=== PATIENT | female | born 1975 | race Caucasian/White ===

== ENCOUNTER 2017-03-08 18:09 | Inpatient (IN) ==
[2017-03-08] MEDS ORDERED: AUGMENTIN PO ONE (21:02)
[2017-03-08] MEDS ORDERED: DECADRON IM ONE (21:02)
[2017-03-08] MEDS ORDERED: ZITHROMAX PO ONE (21:02)
[2017-03-08] MEDS ORDERED: DUONEB (A & A) INH ONE (21:03)
[2017-03-08 21:32] LABS: MANUAL DIFF NEEDED? NO
[2017-03-08 21:36] LABS: BASO% 0.4 % (0.0-0.8); EOS# 0.15 X1000 (0.0-0.7); HEMATOCRIT 48.5 % (37.0-47.0); HEMOGLOBIN 16.3 g/dL (12.0-16.0); IMM GRAN# 0.03 X1000 (0.0-0.04); IMM GRAN% 0.4 % (0.0-0.5); LYMPH# 2.62 X1000 (1.2-3.4); LYMPH% 34.3 % (20.5-51.1); MCH 29.3 PG (27-31); MCHC 33.6 g/dL (33-37); MCV 87.2 FL (81-99); MONO# 0.92 X1000 (0.11-0.59); MONO% 12.1 % (1.7-9.3); MPV 11.5 FL (7.4-10.4); NEUT% 50.8 % (42.2-75.2); PLT 193 X1000 (130-400); RBC 5.56 XMIL (4.2-5.4)
--- NOTE | 2017-03-08 21:50 | EKG Report ---
Test Performed on : 03/08/2017 9:05:48 PM Test Reason : CHEST PAIN Blood Pressure : / mmHG Vent. Rate : 083 BPM Atrial Rate : 083 BPM P-R Int : 136 ms QRS Dur : 090 ms QT Int : 374 ms P-R-T Axes : 016 085 031 degrees QTc Int : 439 ms Normal sinus rhythm. Normal ECG When compared with ECG of 04-FEB-2012 14:14, No significant change was found Unconfirmed Result
[2017-03-08 22:03] LABS: AGAP 17; ALBUMIN 4.1 g/dL (3.5-5.0); ALKALINE PHOSPHATASE 75 U/L (32-104); BUN 22 mg/dL (8-22); CALCIUM 9.8 mg/dL (8.8-10.2); CHLORIDE 94 mmol/L (98-107); CK PROFILE 41 U/L (24-173); COSMO 273; GOT 9 U/L (10-30); GPT 11 U/L (10-36); POTASSIUM 3.8 mmol/L (3.5-5.1); SODIUM 127 mmol/L (136-145); TCO2 16 mmol/L (25-35); TOTAL PROTEIN 7.5 g/dL (6.3-8.3)
[2017-03-08 22:05] LABS: INR 0.91 (0.86-1.15); PROTIME 12.6 Seconds (12.1-15.5)
[2017-03-09 00:22] LABS: URINE CULTURE PL NEEDED? NO
[2017-03-09 00:29] LABS: BE -8.6 mmoll (-3.0-3.0); BLOOD TYPE ARTERIAL; DRAW SITE R RADIAL; O2(CT) 22.6 mL/dL (15.0-23.0); PCO2(98.6) 31 mmHg (35-45); PO2(98.6) 92 mmHg (60-100); SAMPLE BLOOD; SAO2 97.4 % (95.0-100.0); THB 17.1 g/dL (11.5-17.4); pH(98.6) 7.32 (7.35-7.45)
[2017-03-09 00:34] LABS: ALLEN TEST YES; MODALITY ROOM AIR
[2017-03-09] MEDS ORDERED: HUMULIN R IV ONE ×3 (01:18→02:29)
[2017-03-09] MEDS ORDERED: NS 2,000 ML IV ONE (01:18)
[2017-03-09] MEDS ORDERED: ATIVAN IV ONE (01:19)
[2017-03-09] MEDS ORDERED: COZAAR PO ONE (01:37)
[2017-03-09] MEDS ORDERED: NS 100 ML ONE (01:50)
[2017-03-09 01:53] LABS: BILIRUBIN URINE NEGATIVE (NEGATIVE); BLOOD URINE TRACE (NEGATIVE); CLARITY CLEAR (CLEAR); COLOR YELLOW; LEUKOCYTES URINE NEGATIVE (NEGATIVE); NITRITE URINE NEGATIVE (NEGATIVE); PH URINE 6.5; PROTEIN URINE NEGATIVE (NEGATIVE); UROBILINOGEN URINE NORMAL
[2017-03-09] MEDS ORDERED: NS 1,000 ML ONE (01:53)
[2017-03-09 01:54] LABS: URINE SOURCE CLEAN CATCH
[2017-03-09 01:55] LABS: URINE EPITHELIAL CELLS <10 /HPF (<10); URINE RBC <10 /HPF (<10); URINE WBC <10 /HPF (<10)
[2017-03-09] MEDS ORDERED: SODIUM PHOSPHATE 30 MMOL in D5W 250 ML IV PRN (02:29)
[2017-03-09] MEDS ORDERED: D50W SYRINGE IV PRN (02:29)
[2017-03-09] MEDS ORDERED: HUMULIN R 100 UNIT in NS 99 ML IV SCH (02:29)
[2017-03-09] MEDS ORDERED: MAGNESIUM SULFATE 2 GM/S.W.I. 2 GM/50 ML IVPB IV PRN (02:29)
[2017-03-09] MEDS ORDERED: ZOFRAN IV PRN (02:29)
--- NOTE | 2017-03-09 02:51 | PROVIDER DOCUMENTATION ---
This chart was entered by Ashley Chambers Scribe, acting as scribe for Nitin Santiago PA. HPI-Respiratory General - General Source: patient - History of Present Illness-Resp Severity in ED: reports: mild Onset/Duration: reports: other (3 weeks) Cough Quality/Degree: reports: moderate Current Respiratory Medication Therapy: Initiated see nurses note Modifying Factors: improves with: nothing Associated Symptoms: reports: chest pain/soreness, cough Similar Symptoms Previously?: Yes Recently seen or treated by another doctor?: No <Nitin Santiago - Last Filed: 03/09/17 02:51> <Ela Marr - Last Filed: 03/09/17 16:48> <Osvaldo Donis - Last Filed: 03/11/17 02:44> - General Chief Complaint: Cough Stated Complaint: SOB/CHEST PAIN/COUGH Time Seen by Provider: 03/08/17 20:49 Allergies/Adverse Reactions: Patient Allergies Allergy/AdvReac Type Severity Reaction Status Date / Time ceftriaxone sodium * Allergy Severe RASH Verified 03/08/17 20:50 [From Rocephin] Home Medications: Home Medication List Medication Instructions Recorded Confirmed Last Taken Type NK [No Home Medications] 03/08/17 03/08/17 Unknown History - History of Present Illness-Resp Nature of Presenting Problem: 41 year old F presents to the ED with a cc of cough, chest pain, and feeling like she can not get enough air into her lungs. Pt staets that she has had the same and has been diagnosed with bronchitis. PT states that she has had the cough x3 weeks and chest pain began last night. Pt states her daughter was diagnosed with walking pneumonia and was told that it was contagious. (Ashley Chambers) 41 year old F presents to the ED with a cc of cough, chest pain, and feeling like she can not get enough air into her lungs. Pt staets that she has had the same and has been diagnosed with bronchitis. PT states that she has had the cough x3 weeks and chest pain began last night. Pt states her daughter was diagnosed with walking pneumonia and was told that it was contagious. (Nitin Santiago) Review of Systems - Adult - REVIEW OF SYSTEMS - ADULT Constitutional: denies: chills, fever Eyes: reports: no symptoms reported Ears, Nose, Mouth & Throat: reports: no symptoms reported Cardiovascular: reports: chest pain. denies: palpitations Respiratory: reports: cough. denies: shortness of breath Gastrointestinal: denies: nausea, vomiting Genitourinary: reports: no symptoms reported Musculoskeletal: reports: no symptoms reported Integumentary: reports: no symptoms reported Neurological: reports: no symptoms reported Psychiatric: reports: no symptoms reported Endocrine: reports: no symptoms reported Hematologic/Lymphatic: reports: no symptoms reported Allergic/Immunologic: reports: no symptoms reported All Other Systems: Reviewed and Negative <Nitin Santiago - Last Filed: 03/09/17 02:51> - REVIEW OF SYSTEMS - ADULT Constitutional: denies: chills, fever <Osvaldo Donis - Last Filed: 03/11/17 02:44> Past History - Adult - PAST MEDICAL HISTORY-ADULT Review of Records: reports: Nursing Assessment Review, Medications Reviewed Major Childhood Illnesses: reports: denies history Cardiovascular: reports: HTN Respiratory: reports: denies history Gastrointestinal: reports: GERD Obstetrical/Gynecological: reports: denies history Genitourinary: reports: denies history Musculoskeletal: reports: denies history Neurological: reports: denies history Endocrine/Immune: reports: Diabetes, thyroid disorder Other Conditions: reports: denies history - PRIOR SURGERIES/PROCEDURES Surgical/Procedure History: reports: hysterectomy - PRIOR HOSPITALIZATIONS Prior Hospitalizations: reports: for other non-related - IMMUNIZATION STATUS Childhood Immunizations: See Nurse Assessment Flu Vaccine: See Nurse Assessment - FAMILY HISTORY Family History: reviewed, not pertinent - SOCIAL HISTORY Smoking: cigarettes Provider spent 3-5 mins advising pt. on dangers of tobacco.: Discussed manners to quit use, and f/u contacts for add'l counseling. Substance Use: none/never Alcohol Use Frequency: never <Nitin Santiago - Last Filed: 03/09/17 02:51> - PAST MEDICAL HISTORY-ADULT Review of Records: reports: Old Records Reviewed <Ela Marr - Last Filed: 03/09/17 16:48> - PAST MEDICAL HISTORY-ADULT Review of Records: reports: Old Records Reviewed, Nursing Assessment Review, Medications Reviewed, Social history reviewed & non-contributory. <Osvaldo Donis - Last Filed: 03/11/17 02:44> Physical Exam-General - PHYSICAL EXAM-ADULT Initial Vital Signs Reviewed: Yes - CONSTITUTIONAL General Appearance: alert, no apparent distress, other (emotionally distraught) - RESPIRATORY Respiratory: chest non-tender, normal breath sounds, wheezing (mild bilaterally) - CARDIOVASCULAR Cardiovascular: normal peripheral pulses, regular rate, rhythm, no edema - SKIN Integumentary: normal color, normal turgor, warm/dry - PSYCHIATRIC Psych/Mental Status: normal thought content, normal thought process, oriented x 3, tearful <Nitin Santiago - Last Filed: 03/09/17 02:51> - CONSTITUTIONAL General Appearance: alert <Osvaldo Donis - Last Filed: 03/11/17 02:44> Progress - PLAN OF CARE/RESULTS Result Diagrams: 03/08/17 21:23 03/08/17 21:23 - REASSESSMENT Reassessment #1 Time Reassessed: 01:16 (Pt states she has not taken her diabetes medications in weeks. Based on review of labs, she appears to be in the early stages of DKA. I discussed this with the pt and she agreed to be treated as an in-patient. Pt is emotionally upset.) - EKG 1 Time of EKG reading by physician:: 21:05 EKG Read and Signed by:: Osvaldo Donis EKG Interpretation (*Must complete 3 of following elements*): Normal Rate: 83 Rhythm: NSR [place]: normal - CONSULTS/PCP/HOSPITALIST Notification #1 *Consult/PCP/Hospitalist*: Dr. Singleton (Hospitalist) Time Discussed: 01:36 Reason/Comments: Will admit. Start DKA Protocol <Nitin Santiago - Last Filed: 03/09/17 02:51> - PLAN OF CARE/RESULTS Result Diagrams: 03/08/17 21:23 03/09/17 10:30 <Ela Marr - Last Filed: 03/09/17 16:48> - PLAN OF CARE/RESULTS Result Diagrams: 03/08/17 21:23 03/10/17 07:10 - REASSESSMENT Reassessment #1 Time Reassessed: 01:16 - EKG 1 Time of EKG reading by physician:: 21:05 EKG Read and Signed by:: Osvaldo Donis EKG Interpretation (*Must complete 3 of following elements*): Normal Rate: 83 Rhythm: nsr [place]: normal <Osvaldo Donis - Last Filed: 03/11/17 02:44> - PLAN OF CARE/RESULTS Progress/Plan/Lab Results: Orders Category Date Time Status Admit - [facility] Routine AdmDCTranf 03/09/17 01:38 Ordered Activity - Up Ad Gisele ORDERED Care 03/09/17 01:38 Active Call Admitting on Arrival AT ADMISSION Care 03/09/17 01:38 Completed CHEST-2 VIEWS [RAD] Stat Exams 03/08/17 18:22 Completed ABG [RESP] Routine Lab 03/09/17 00:10 Completed ACETONE SERUM [CHEM] Stat Lab 03/09/17 00:03 Completed BASIC METABOLIC PANEL [CHEM] Stat Lab 03/09/17 01:32 Completed BASIC METABOLIC PANEL [CHEM] Timed Lab 03/09/17 06:00 Completed CBC WITH ELECTRONIC DIFF [HEME] Stat Lab 03/08/17 21:23 Completed CK PROFILE [SP CHEM] Stat Lab 03/08/17 21:23 Completed COMPREHENSIVE METABOLIC PANEL [CHEM] Stat Lab 03/08/17 21:23 Com[address] D-D[address]ER [address] [COAG] Stat Lab 03/08/17 21:23 Completed MAGNESIUM [CHEM] Stat Lab 03/08/17 21:23 Completed MAGNESIUM [CHEM] Stat Lab 03/09/17 01:32 Completed MAGNESIUM [CHEM] Timed Lab 03/09/17 06:00 Completed PHOSPHORUS [CHEM] Stat Lab 03/09/17 01:32 Completed PHOSPHORUS [CHEM] Timed Lab 03/09/17 06:00 Completed PRO B-NATRIURETIC PEPTIDE Stat Lab 03/08/17 21:[address] Com[address]IME WITH INR PL [COAG] Stat Lab 03/08/17 21:[address] [COAG] Stat Lab 03/08/17 21:23 Completed TROPONIN T Stat Lab 03/08/17 21:[address] W/POSS RFLX CULT [URINALYSIS] Stat Lab 03/09/17 00:07 Completed 0.9% Sodium Chloride Inj [Ns] 1,000 ml Med 03/09/17 01:53 Discontinued .ROUTE As Directed 0.9% Sodium Chloride Inj [Ns] 100 ml Med 03/09/17 01:50 Discontinued .ROUTE As Directed 0.9% Sodium Chloride Inj [Ns] 2,000 ml Med 03/09/17 01:18 Discontinued IV 999 mls/hr Albuterol 2.5MG/Ipratrop 0.5MG [Duoneb (A & A)] Med 03/08/17 21:03 Discontinued 6 ml INH NOW ONE Amoxicillin/Pot Clavulanate [Augmentin] Med 03/08/17 21:02 Discontinued 875 mg PO NOW ONE Azithromycin [Zithromax] Med 03/08/17 21:02 Discontinued 500 mg PO NOW ONE Dexamethasone [Decadron] Med 03/08/17 21:02 Discontinued 10 mg IM NOW ONE Insulin Human Regular [Humulin R] Med 03/09/17 01:18 Discontinued 10 unit IV NOW ONE Insulin Human Regular [Humulin R] Med 03/09/17 01:19 Discontinued See Protocol IV NOW ONE Lorazepam [Ativan] Med 03/09/17 01:19 Discontinued 1 mg IV NOW ONE Losartan [Cozaar] Med 03/09/17 01:37 Discontinued 100 mg PO NOW ONE Aerosol Treatments Routine Oth 03/08/17 21:03 Completed Aerosol Treatments Stat Oth 03/08/17 21:03 Completed Oxygen Device Routine Oth 03/09/17 01:39 Completed Telemetry [OM.EQ] Routine Oth 03/09/17 01:38 Active EKG [EKG] Stat Ther 03/08/17 21:02 Draft Transfer/Admit Order [TRANSFER] Routine Transfer 03/09/17 01:40 Completed Departure - Departure Time of Disposition Decision: 01:15 Certified Medical Emergency: Emergent <Nitin Santiago - Last Filed: 03/09/17 02:51> - Departure Time of Disposition Decision: 01:16 Certified Medical Emergency: Emergent <Ela Marr - Last Filed: 03/09/17 16:48> - Departure Time of Disposition Decision: 01:16 Certified Medical Emergency: Emergent <Osvaldo Donis - Last Filed: 03/11/17 02:44> - Departure DIAGNOSIS: DKA (diabetic ketoacidoses) Qualifiers: Diabetes mellitus type: other specified (including SREEKANTH) Diabetes mellitus complication detail: without coma Qualified Code(s): E13.10 - Other specified diabetes mellitus with ketoacidosis without coma URI (upper respiratory infection) Qualifiers: URI type: unspecified URI Qualified Code(s): J06.9 - Acute upper respiratory infection, unspecified Disposition: ADMITTED INPATIENT 09 Condition: Stable Attestation - Physician/ LON Attestation Patient care was provided by Advanced Practice Provider:: Yes Advanced Practice Provider:: Nitin Santiago Advanced Practice Provider documentation review:: The Mid-level provider documentation, treatment plan and medical decision making was reviewed by the physician who agrees with all treatment and medical decision making by the MLP. <Nitin Santiago - Last Filed: 03/09/17 02:51> This chart was documented by the indicated scribe, (Ashley Chambers Scribe) and accurately reflects the services I performed and decisions made by me, Nitin Santiago, PA, as attested by the provider's signature.
[2017-03-09 03:22] LABS: AGAP 21; BUN 20 mg/dL (8-22); CALCIUM 9.8 mg/dL (8.8-10.2); CHLORIDE 92 mmol/L (98-107); COSMO 273; SODIUM 126 mmol/L (136-145); TCO2 14 mmol/L (25-35)
[2017-03-09 03:49] LABS: HEMOGLOBIN A1C 10.8 % (4.8-6.0)
[2017-03-09] MEDS: NS 1,000 ML IV SCH ×4 (04:08→19:54)
[2017-03-09 06:43] LABS: AGAP 18; BUN 15 mg/dL (8-22); CALCIUM 8.7 mg/dL (8.8-10.2); CHLORIDE 99 mmol/L (98-107); COSMO 275; POTASSIUM 4.2 mmol/L (3.5-5.1); SODIUM 131 mmol/L (136-145); TCO2 14 mmol/L (25-35)
--- NOTE | 2017-03-09 08:21 | Diag Imaging Result Document ---
PROCEDURE NAME: CHEST-2 VIEWS - 03/08/2017 CHEST TWO VIEWS: INDICATION: Cough. COMPARISON: 02/04/2012. FINDINGS: The cardiomediastinal silhouette is within normal limits. The pulmonary vasculature is not congested. No infiltrate, effusion, or pneumothorax is appreciated. IMPRESSION: No acute cardiopulmonary abnormality is appreciated.
[2017-03-09 11:17] LABS: AGAP 19; BUN 14 mg/dL (8-22); CHLORIDE 99 mmol/L (98-107); COSMO 271; POTASSIUM 4.6 mmol/L (3.5-5.1); SODIUM 131 mmol/L (136-145); TCO2 13 mmol/L (25-35)
[2017-03-09] MEDS: D5 1/2 NS 1,000 ML IV SCH (13:52)
[2017-03-09 20:11] LABS: AGAP 15; BUN 16 mg/dL (8-22); CHLORIDE 101 mmol/L (98-107); COSMO 279; POTASSIUM 3.8 mmol/L (3.5-5.1); SODIUM 133 mmol/L (136-145); TCO2 17 mmol/L (25-35)
[2017-03-09] MEDS: XANAX PO PRN (21:14)
[2017-03-09 23:33] LABS: AGAP 14; BUN 14 mg/dL (8-22); CALCIUM 8.5 mg/dL (8.8-10.2); CHLORIDE 102 mmol/L (98-107); COSMO 277; POTASSIUM 3.6 mmol/L (3.5-5.1); SODIUM 134 mmol/L (136-145); TCO2 18 mmol/L (25-35)
[2017-03-10] MEDS: NS 1,000 ML IV SCH ×4 (01:15→23:38)
[2017-03-10] MEDS: D5 1/2 NS 1,000 ML IV SCH (01:15)
[2017-03-10 03:40] LABS: MAGNESIUM 1.9 mg/dL (1.5-2.7)
[2017-03-10 03:41] LABS: AGAP 10; BUN 13 mg/dL (8-22); CALCIUM 8.4 mg/dL (8.8-10.2); CHLORIDE 106 mmol/L (98-107); COSMO 279; POTASSIUM 3.3 mmol/L (3.5-5.1); SODIUM 135 mmol/L (136-145); TCO2 19 mmol/L (25-35)
[2017-03-10 07:38] LABS: AGAP 9; BUN 12 mg/dL (8-22); CALCIUM 8.4 mg/dL (8.8-10.2); CHLORIDE 107 mmol/L (98-107); COSMO 275; POTASSIUM 3.2 mmol/L (3.5-5.1); SODIUM 134 mmol/L (136-145); TCO2 18 mmol/L (25-35)
[2017-03-10] MEDS ORDERED: LANTUS INSULIN (PARKWAY) SUBQ ONE (08:17)
[2017-03-10 11:49] LABS: MAGNESIUM 1.8 mg/dL (1.5-2.7)
[2017-03-10] MEDS: HUMALOG DOSE (PARKWAY) SUBQ SCH ×3 (12:15→21:05)
[2017-03-10] MEDS ORDERED: LANTUS INSULIN (PARKWAY) SUBQ SCH (21:00)
[2017-03-10] MEDS: XANAX PO PRN (21:06)
[2017-03-11] MEDS: HUMALOG DOSE (PARKWAY) SUBQ SCH ×2 (06:29→11:49)
[2017-03-11 07:19] LABS: HEMATOCRIT 44.9 % (37.0-47.0); HEMOGLOBIN 15.1 g/dL (12.0-16.0); MCH 29.6 PG (27-31); MCHC 33.6 g/dL (33-37); MPV 11.4 FL (7.4-10.4); RBC 5.1 XMIL (4.2-5.4)
[2017-03-11 07:52] LABS: AGAP 14; ALBUMIN 3.5 g/dL (3.5-5.0); ALKALINE PHOSPHATASE 57 U/L (32-104); BUN 8 mg/dL (8-22); CALCIUM 8.9 mg/dL (8.8-10.2); CHLORIDE 100 mmol/L (98-107); COSMO 274; GOT 14 U/L (10-30); GPT 9 U/L (10-36); POTASSIUM 4.1 mmol/L (3.5-5.1); SODIUM 134 mmol/L (136-145); TCO2 20 mmol/L (25-35); TOTAL PROTEIN 6.4 g/dL (6.3-8.3)
[2017-03-11] MEDS ORDERED: GLUCOPHAGE PO SCH (08:30)
[2017-03-11] MEDS ORDERED: GLUCOTROL PO SCH (09:00)
[2017-03-11] MEDS: NS 1,000 ML IV SCH (09:21)
[2017-03-11 11:37] VITALS: BP 131/86
--- NOTE | 2017-03-11 12:51 | DISCHARGE SUMMARY ---
ADMISSION DATE: 03/09/2017 DISCHARGE DATE: 03/11/2017 DISCHARGE DIAGNOSES: 1. Diabetic ketoacidosis, resolved. 2. Volume depletion, resolved. 3. Diabetes type 2. 4. Poor control secondary to having lost her insurance and not having any medications. CONSULTATIONS: None. PROCEDURES: None. BRIEF HOSPITAL COURSE: The patient is a 41-year-old female who was admitted as noted on the HPI, treated in the usual fashion, placed on insulin drip which she tolerated very well. On discharge, she was awake, alert. She was in no distress. She was tolerating glipizide and Glucophage without any difficulty. DISPOSITION: The patient will be discharged home. Prescriptions for glipizide and Glucophage were given. FOLLOWUP: She was instructed to follow up in the office in 1 to 2 weeks. Further orders as needed. TIME SPENT: Thirty-five minutes spent in discharge planning. cc: Quirino Singleton MD
--- NOTE | 2017-03-14 15:12 | HISTORY AND PHYSICAL ---
CHIEF COMPLAINT: Cough and shortness of breath. HISTORY OF PRESENT ILLNESS: Patient is a 41-year-old female who presented to [facility] with chief complaint of shortness of breath for the past couple of days. She states that she felt as though she could not get enough air into her lungs. States that each time she was having increased cough, some congestion. She was diagnosed with pneumonia a couple of days ago and was placed on antibiotics. States she felt that she was getting better to begin with and then symptoms began to worsen and that was the reason she presented to the emergency department. REVIEW OF SYSTEMS: Positive cough nonproductive, feels as though she has chest pain midsternal. Denies any radiation of said chest pain. Denies any fevers or chills. Denies any GI or symptoms otherwise. Denies any skin rashes, weight loss, or weight gain. ALLERGIES: Rocephin. MEDICATION: She currently is on no home medications because she ran out of them. Notes that she has not been on medicines for a few days since she lost her insurance. PAST MEDICAL HISTORY: Significant for hypertension, reflux, diabetes, hypothyroidism. She has had a hysterectomy in the past. FAMILY HISTORY: Positive for diabetes. SOCIAL HISTORY: Patient lives at home. She currently is unemployed. PHYSICAL EXAMINATION: VITAL SIGNS: Afebrile currently. Vital signs stable. GENERAL: She is awake, alert, oriented. She is in no respiratory distress. Pleasant to talk with. Speech is regular. Memory is intact. NECK: Supple. CARDIOVASCULAR: Regular rate. CHEST: Relatively clear. ABDOMEN: Soft and nondistended. EXTREMITIES: Moves all extremities. NEUROLOGIC: No focal changes. SKIN: Warm and dry. No rashes. DIAGNOSTIC DATA: WBC 7, hemoglobin and hematocrit of 16 and 43. Sodium 127, glucose 254, bicarb 16. Acetone positive. ASSESSMENT: 1. Diabetic ketoacidosis unfortunately likely secondary to medical noncompliance. States she has been out of medications due to no insurance. 2. Diabetes type 2 with poor control. 3. Hyponatremia. 4. Pneumonia. 5. Chest pain secondary to her pneumonia, not cardiac. PLAN: We will admit the patient hospital ICU. Insulin drip, IV antibiotics, IV fluids. Continue to follow. Further orders as needed. cc: Quirino Singleton MD
== END 2017-03-11 13:40 | disposition home or self-care (01) ==
LOC: P.ED 18:09 → EDIPHOLD 03-09 02:08 → SUATTDRO 03-09 02:08 → P.EDIPHOLD 03-09 03:07 → P.ICU 03-09 13:36 → P.MEDSURG 03-10 21:18
PROVIDERS: ADMIT Family Medicine; ATTEND Family Medicine